=== PATIENT | male | born 1960 | race American Indian/Alaskan Native ===

== ENCOUNTER 2017-10-18 17:18 | Emergency (ER) | payer MEDICARE ==
[2017-10-18 17:23] VITALS: BP 122/89
[2017-10-18 18:02] LABS: Bilirubin,Urine NEG (Negative); Blood,Urine NEG (Negative); Color,Urine Yellow (Yellow); Mucus,Urine FEW /HPF; Protein,Urine <15 mg/dL mg/dL (Negative); Urobilinogen,Urine < 2.0 mg/dL (<2.0)
--- NOTE | 2017-10-18 21:42 | Emergency Department Report ---
ED Male HPI - General Chief complaint: Urogenital-Male Stated complaint: BLOOD IN URINE/BACK PAIN/FEVER Time Seen by Provider: 10/18/17 21:36 Source: patient Mode of arrival: Ambulatory Limitations: No Limitations - History of Present Illness Initial comments: This is a 57 y.o. male that presents with low back pain and hematuria for 2 weeks. Patient was diagnosed with a UTI and started on pyridium and cipro. He completed the last dose of cipro today and still having symptoms. Patient reports frequency, urgency, and dysuria. He is taking tamsulosin as well for BPH. is at bedside and worried something is going with prostate. Patient states he is voiding fine, it is just painful. Denies testicular pain/swelling, fever, nausea/vomiting, and low abdominal pain. MD Complaint: dysuria -: week(s) (2 weeks) Location: right flank, left flank Radiation: none Severity: mild Severity scale (0 -10): 3 Quality: burning Consistency: intermittent Improves with: none Worsens with: urination blood in urine, dysuria - Related Data Sexually active: Yes Previous Rx's Medication Instructions Recorded Last Taken Type Sulfamethoxazole/Trimethoprim 1 each PO BID 2 Days #4 tablet 10/18/17 Unknown Rx [Bactrim DS TAB] Allergies Allergy/AdvReac Type Severity Reaction Status Date / Time No Known Allergies Allergy Unverified 10/18/17 17:20 ED Review of Systems ROS: Stated complaint: BLOOD IN URINE/BACK PAIN/FEVER Other details as noted in HPI Constitutional: denies: chills, fever Respiratory: denies: cough, shortness of breath, wheezing Cardiovascular: denies: chest pain, palpitations, syncope Gastrointestinal: denies: abdominal pain, nausea, vomiting, diarrhea Genitourinary: urgency, dysuria, frequency, hematuria. denies: discharge, testicular pain, testicular mass Neurological: denies: headache, weakness, paresthesias Psychiatric: denies: anxiety, depression ED Past Medical Hx - Medications Home Medications: Home Medications Medication Instructions Recorded Confirmed Last Taken Type Sulfamethoxazole/Trimethoprim 1 each PO BID 2 Days #4 tablet 10/18/17 Unknown Rx [Bactrim DS TAB] ED Physical Exam - General Limitations: No Limitations General appearance: alert, in no apparent distress - Respiratory Respiratory exam: Present: normal lung sounds bilaterally. Absent: respiratory distress, wheezes, rales, rhonchi, stridor, accessory muscle use, decreased breath sounds - Cardiovascular Cardiovascular Exam: Present: regular rate, normal rhythm, normal heart sounds. Absent: systolic murmur, diastolic murmur, rubs, gallop - GI/Abdominal GI/Abdominal exam: Present: soft, normal bowel sounds. Absent: distended, tenderness, guarding, rebound, rigid, organomegaly, mass - Back Exam Back exam: Present: full ROM, CVA tenderness (R), CVA tenderness (L). Absent: muscle spasm, rash noted - Neurological Exam Neurological exam: Present: alert, oriented X3, normal gait - Psychiatric Psychiatric exam: Present: normal affect, normal mood - Skin Skin exam: Present: warm, dry, intact, normal color. Absent: rash ED Course Vital Signs 10/18/17 17:20 Temperature 97.9 F Pulse Rate 83 Respiratory 16 Rate Blood Pressure 122/89 O2 Sat by Pulse 98 Oximetry ED Medical Decision Making - Medical Decision Making 57 y.o. male that presents with low back pain, hematuria, and dysuria for 2 weeks. Patient examined by me. No distress noted. History of BPH and pre- diabetes. Vitals stable. Obtained UA, WBC elevated. Recently completed cipro for UTI from PCP. Given rocephin 250 mg IM and azithromycin 1 g po once in ER for STD exposure. Start bactrim DS for UTI coverage. Advised to f/u with PCP and call for urinalysis culture results in 3-5 days. Discharged home. Critical care attestation.: If time is entered above; I have spent that time in minutes in the direct care of this critically ill patient, excluding procedure time. ED Disposition Clinical Impression: STD exposure Acute cystitis Qualifiers: Hematuria presence: without hematuria Qualified Code(s): N30.00 - Acute cystitis without hematuria Disposition: - TO HOME OR SELFCARE Is pt being admited?: No Does the pt Need Aspirin: No Condition: Stable Instructions: Urinary Tract Infection in Men (ED), Sexually Transmitted Diseases (ED), Safe Sex (ED) Additional Instructions: Increase fluid intake. Call or return for lab results in 3-5 days. Follow up with Primary Care Provider in 2-3 days. Prescriptions: Sulfamethoxazole/Trimethoprim [Bactrim DS TAB] 1 each PO BID 2 Days #4 tablet Forms: Work/School Release Form(ED) Time of Disposition: 21:55 Print Language: ANDORRAN
[2017-10-18] MEDS ORDERED: ZITHROMAX PO ONE (21:44)
[2017-10-18] MEDS ORDERED: ROCEPHIN IM ONE (21:44)
[2017-10-18] MEDS ORDERED: XYLOCAINE 1% MPF 5 mL INFILTRATI ONE (21:44)
== END 2017-10-18 22:30 | disposition home or self-care (01) ==
LOC: ED 17:18
DX: N30.00 Acute cystitis without hematuria (principal); Z20.2 Contact with and (suspected) exposure to infections with a predominantly sexual mode of transmission
CPT/HCPCS: 81001; 96372; 99283; J0696